=== PATIENT | male | born 1960 | race Caucasian/White ===

== ENCOUNTER 2024-01-14 09:04 | Day surgery (SDC) | payer MEDICAID ==
[2024-01-14] VITALS (11 sets, daily range): BP systolic 100–148; BP diastolic 60–97; PULSE 64–101; RESP 11–17; TEMP 97.9; O2SAT 92–97
[~2024-01-14] VITALS: Ht 167.6 cm; Wt 116.2 kg
[~2024-01-14 09:04] MED LIST: CEPH-572 PO
[2024-01-14 10:01] LABS: BASOPHILS # (AUTO) 0.1 X10'3 (0-0.2); BASOPHILS % (AUTO) 1.3 % (0-1); EOSINOPHILS # (AUTO) 0.3 X10'3 (0-0.9); EOSINOPHILS % (AUTO) 3.6 % (0-6); HEMATOCRIT 41.1 % (42.0-52.0); HEMOGLOBIN 13.8 g/dl (14.0-17.9); LYMPHOCYTES # (AUTO) 2.5 X10'3 (1.1-4.8); LYMPHOCYTES % (AUTO) 26.8 % (21-51); MEAN CORPUSCULAR HEMOGLOBIN 33.4 PG (27.0-31.0); MEAN CORPUSCULAR HGB CONC 33.6 g/dL (33.0-36.5); MEAN CORPUSCULAR VOLUME 99.4 FL (78-98); MEAN PLATELET VOLUME 7.7 FL (7.4-10.4); MONOCYTES # (AUTO) 0.9 X10'3 (0-0.9); MONOCYTES % (AUTO) 9.6 % (2-12); NEUTROPHILS # (AUTO) 5.6 X10'3 (1.8-7.7); NEUTROPHILS % (AUTO) 58.7 % (42-75); PLATELET COUNT 305 X10'3 (140-440); RED BLOOD COUNT 4.14 X10'6 (4.70-6.10); RED CELL DISTRIBUTION WIDTH 14.2 % (11.5-14.5); WHITE BLOOD COUNT 9.5 X10'3 (4.5-11.0)
[2024-01-14 10:04] LABS: APTT 25 SECONDS (22-32); PROTHROMBIN TIME 10.8 SECONDS (9.0-12.0)
[2024-01-14 10:07] LABS: GLUCOSE 92 MG/DL (70-104)
[2024-01-14 10:08] LABS: ALBUMIN 3.9 G/DL (3.4-5.0); ANION GAP 13 (8-16); BLOOD UREA NITROGEN 12 MG/DL (7-18); BUN/CREATININE RATIO 15.4 (10.0-20.0); CALCIUM 8.1 MG/DL (8.5-10.1); CHLORIDE 102 MMOL/L (99-107); CREATININE 0.78 MG/DL (0.60-1.10); POTASSIUM 4.1 MMOL/L (3.5-5.1); SODIUM 137 MMOL/L (135-145); TOTAL CARBON DIOXIDE 22.2 MMOL/L (24-32); eCRCL 87 ML/MIN; eGFR > 90 ML/MIN
[2024-01-14] MEDS ORDERED: verapamil 2.5 mg/ml inj IV ONE (10:45)
[2024-01-14] MEDS ORDERED: midazolam 1 mg/ML 2ml injection ONE ×3 (10:46→12:43)
[2024-01-14] MEDS ORDERED: LIDOcaine 1% 30ml preserv. free vial ONE (10:46)
[2024-01-14] MEDS ORDERED: fentaNYL/PF 50MCG/1 ML 2ML syringe ONE ×2 (10:46→11:54)
[2024-01-14] MEDS ORDERED: heparin 1,000unit/ml 10ml vial 10 ML ONE (10:46)
[2024-01-14] MEDS ORDERED: iohexol 350MG/ML 100ml bottle IV ONE ×2 (10:46→12:16)
[2024-01-14] MEDS ORDERED: iohexol 350 MG/ML 50ML vial IV ONE ×2 (10:46→12:11)
[2024-01-14] MEDS ORDERED: nitroGLYCERIN 500mcg/5mL D5W 5 ML IV ONE (10:48)
[2024-01-14] MEDS ORDERED: NO HOME MEDS (11:07)
[2024-01-14] MEDS: diphenhydrAMINE 25mg capsule PO PRN (11:08)
[2024-01-14] MEDS: LORazepam 0.5 MG tablet PO PRN (11:08)
[2024-01-14] MEDS: normal saline 1,000 ML IV SCH (11:09)
[2024-01-14] MEDS ORDERED: HYDROmorphone 1 mg/ml syringe ONE ×2 (11:35→12:46)
[2024-01-14] MEDS ORDERED: normal saline 1000ml 1,000 ML IV SCH (13:40)
[2024-01-14] MEDS ORDERED: ondansetron/PF 4mg/2ml inj IV PRN (13:40)
[2024-01-14] MEDS ORDERED: HYDROcodone/acetaminophen 10/325mg tab PO PRN (13:45)
[2024-01-14] MEDS ORDERED: OXAZEpam 15mg capsule PO PRN (13:45)
[2024-01-14] MEDS ORDERED: HYDROcodone/acetaminophen 5mg/325mg tablet PO PRN (13:45)
[2024-01-14] MEDS ORDERED: proCHLORperazine 10 MG/2 ml inj IV PRN (13:45)
== END 2024-01-14 19:00 | disposition home or self-care (01) ==
LOC: SSTAY O 09:04
PROVIDERS: ATTEND Internal Medicine Cardiovascular Disease
DX: R94.39 Abnormal result of other cardiovascular function study (principal); I25.10 Atherosclerotic heart disease of native coronary artery without angina pectoris; I25.2 Old myocardial infarction; G47.33 Obstructive sleep apnea (adult) (pediatric); M19.90 Unspecified osteoarthritis, unspecified site; E78.5 Hyperlipidemia, unspecified; I10 Essential (primary) hypertension; F17.210 Nicotine dependence, cigarettes, uncomplicated; E66.9 Obesity, unspecified; Z68.41 Body mass index [BMI] 40.0-44.9, adult; Z72.89 Other problems related to lifestyle; Z98.890 Other specified postprocedural states; Z79.899 Other long term (current) drug therapy; Z79.01 Long term (current) use of anticoagulants
CPT/HCPCS: 36415; 71046; 80048; 85025; 85610; 85730; 93005; 93458; 99152; 99153; J1170; J1644; J2250; J3010; J3490; J7030; Q0163; Q9967; A6258; A6449; C1760; C1894